=== PATIENT | male | born 1985 | race Caucasian/White ===

== ENCOUNTER 2017-09-06 12:03 | Emergency (ER) | payer SELFPAY ==
[~2017-09-06] VITALS: Ht 175.3 cm; Wt 56.8 kg
[~2017-09-06 12:03] MED LIST: BENZ2 PO; DEXT5LOZ3 BUCCAL; DIPH50 PO; HALO10 PO; PROP1TAB66 PO; WELL150T PO
[2017-09-06 12:06] VITALS: BP 110/72; PULSE 81; RESP 16; TEMP 99; O2SAT 98
[2017-09-06] MEDS ORDERED: WELL200T (12:47)
[2017-09-06] MEDS ORDERED: MIRTA15 PO (12:47)
[2017-09-06] MEDS ORDERED: PROP10TA6 PO (12:47)
[2017-09-06] MEDS ORDERED: OXCA300T PO (12:47)
[2017-09-06] MEDS ORDERED: HALO10TA PO (12:47)
[2017-09-06] MEDS ORDERED: BENZ0.5T PO (12:47)
--- NOTE | 2017-09-06 13:27 | RADRPT ---
EXAM DATE/TIME: 09/06/2017 13:16 [place] COMPARISON: No previous studies available for comparison. INDICATIONS : Cough MEDICAL HISTORY : None. SURGICAL HISTORY : None. ENCOUNTER: Initial ACUITY: 4 - 6 days PAIN SCORE: 0/10 LOCATION: Bilateral chest FINDINGS: 2 PA erect views of the chest demonstrates the lungs to be symmetrically aerated without evidence of mass, infiltrate or effusion. The cardiomediastinal contours are unremarkable. Osseous structures a re intact. CONCLUSION: No acute disease. There is no evidence of pneumonia. Patric Gómez MD on September 06, 2017 at 13:24 Board Certified Radiologist. This report was verified electronically.
[2017-09-06 13:42] LABS: BASOPHIL # 0.1 TH/MM3 (0-0.2); EOSINOPHIL # 0.1 TH/MM3 (0-0.4); HEMOGLOBIN 14.5 GM/DL (13.0-17.0); LYMPH % 21.5 % (9.0-44.0); LYMPHOCYTE # 1.4 TH/MM3 (1.0-4.8); MEAN CELL VOLUME 92.9 FL (80.0-100.0); MEAN CORPUSCULAR HEMOGLOBIN 32.1 PG (27.0-34.0); MEAN CORPUSCULAR HGB CONC 34.5 % (32.0-36.0); MEAN PLATELET VOLUME 5.9 FL (7.0-11.0); MONO % 13.5 % (0.0-8.0); MONOCYTE # 0.9 TH/MM3 (0-0.9); PLATELET COUNT 281 TH/MM3 (150-450); RED BLOOD COUNT 4.52 MIL/MM3 (4.50-5.90); RED CELL DISTRIBUTION WIDTH 12.1 % (11.6-17.2); WHITE BLOOD COUNT 6.4 TH/MM3 (4.0-11.0)
[2017-09-06 13:46] LABS: CHLORIDE 93 MEQ/L (98-107); SODIUM (NA) 125 MEQ/L (136-145)
[2017-09-06 13:49] LABS: ALBUMIN 3.9 GM/DL (3.4-5.0); BICARBONATE 25.2 MEQ/L (21.0-32.0); CALCIUM 8.4 MG/DL (8.5-10.1)
[2017-09-06 13:50] LABS: BLOOD UREA NITROGEN 4 MG/DL (7-18); GLUCOSE,RANDOM 87 MG/DL (74-106)
[2017-09-06 13:53] LABS: AST (GOT) 15 U/L (15-37); CREATININE 0.86 MG/DL (0.60-1.30); GLOMERULAR FILTRATION RATE 102 ML/MIN (>89)
[2017-09-06 13:54] LABS: TOTAL BILIRUBIN ADULT 0.5 MG/DL (0.2-1.0); TOTAL PROTEIN 6.9 GM/DL (6.4-8.2)
[2017-09-06 13:56] LABS: ALKALINE PHOSPHATASE 79 U/L (45-117)
[2017-09-06 13:58] LABS: ALT (GPT) 34 U/L (12-78)
[2017-09-06] MEDS ORDERED: SODIUM CHLOR 0.9% 1000 ML INJ 1,000 ML IV ONE (14:00)
--- NOTE | 2017-09-06 14:28 | PD ---
HPI Chief Complaint: Cold / Flu Symptoms Time Seen by Provider: 12:42 Travel History International Travel<30 days: No Contact w/Intl Traveler<30days: No Traveled to known affect area: No History of Present Illness HPI 31-year-old male that presents to the ED for evaluation of cold like symptoms. Patient has had cold like symptoms for about 4 or 5 days. Patient states that he has not been drinking a lot of water feels complains of sore throat. Congestion and cough. No sick contacts. Patient states having loss of appetite. He states that he has cough. He has not seen anybody for this. No urinary or bowel movement issues. No numbness, tingling, weakness. Per patient he has congestion in his chest. He got the flu shot this year. No allergies to medication. No back pain or neck pain. Per patient the body aches all over. Hasn't taken anything for this. No other medical issues. Pain per patient is 7 out of 10. PFSH Past Medical History Hx Anticoagulant Therapy: No Anxiety: Yes Depression: Yes Cancer: No (not reported) Cardiovascular Problems: Yes Chemotherapy: No Cerebrovascular Accident: No Diabetes: No Diminished Hearing: No Endocrine: No Genitourinary: No Headaches: No (not reported) Hypertension: Yes Immune Disorder: No Musculoskeletal: No Neurologic: No Psychiatric: Yes Respiratory: No Immunizations Current: Yes Radiation Therapy: No Schizophrenia: Yes Seizures: No Thyroid Disease: No Tetanus Vaccination: Unknown Influenza Vaccination: Yes Past Surgical History Surgical History: No Previous Surgery Hysterectomy: No Social History Alcohol Use: No (Hasn't had a drink in 5-6 mos) Tobacco Use: Yes Substance Use: No Allergies-Medications (Allergen,Severity, Reaction): Coded Allergies: No Known Allergies (Unverified Adverse Reaction, Unknown, 09/06/17) Per MAR faxed from [facility] [phone] per Nory. Reported Meds & Prescriptions Reported Meds & Active Scripts Active Reported Haloperidol 10 Mg Tab 10 Mg PO BID Oxcarbazepine 300 Mg Tab 300 Mg PO BID Wellbutrin SR 12 HR (Bupropion HCl) 200 Mg Tab 200 Mg DAILY Benztropine (Benztropine Mesylate) 0.5 Mg Tab 2 Mg PO BID Mirtazapine 15 Mg Tab 15 Mg PO HS Propranolol (Propranolol HCl) 10 Mg Tab 10 Mg PO Q12HR Review of Systems Except as stated in HPI: all other systems reviewed are Neg Physical Exam Narrative GENERAL: Well-nourished, well-developed patient in no apparent distress. SKIN: Warm and dry. HEAD: Atraumatic. Normocephalic. EYES: Pupils equal and round reactive to light and accommodation. No scleral icterus. No injection or drainage. ENT: No nasal bleeding or discharge. Mucous membranes pink and moist. TMs are clear with no sign of infection or perforation. No mastoid tenderness. Ear canals are intact bilaterally. No lymphadenopathy. Nostril mucosa is red and moist with clear mucus noted. No sinus tenderness to palpation noted. Tonsils are not enlarged or swollen. No ulvua Deviation. Tongue is midline. NECK: Trachea midline. No JVD. No meningeal signs noted CARDIOVASCULAR: Regular rate and rhythm. RESPIRATORY: No accessory muscle use. Clear to auscultation. Breath sounds equal bilaterally. GASTROINTESTINAL: Abdomen soft, non-tender, nondistended. Hepatic and splenic margins not palpable. MUSCULOSKELETAL: Extremities without clubbing, cyanosis, or edema. No obvious deformities. Full range of motion of the upper and lower extremity is bilaterally. 2+ pulses bilaterally. NEUROLOGICAL: Awake and alert. No obvious cranial nerve deficits. Motor grossly within normal limits. Five out of 5 muscle strength in the arms and legs. Normal speech. PSYCHIATRIC: Appropriate mood and affect; insight and judgment normal. Data Data Last Documented VS Vital Signs Date Time Temp Pulse Resp B/P (MAP) Pulse Ox O2 Delivery O2 Flow Rate FiO2 09/06/17 12:06 99.0 81 16 110/72 (85) 98 Orders Orders Chest, Single Ap (09/06/17 ) Influenzae A/B Antigen (09/06/17 13:08) Complete Blood Count With Diff (09/06/17 13:15) Comprehensive Metabolic Panel (09/06/17 13:15) Thyroid Stimulating Hormone (09/06/17 13:15) Sodium Chlor 0.9% 1000 Ml Inj (Ns 1000 M (09/06/17 14:00) Ed Discharge Order (09/06/17 14:24) Labs Laboratory Tests Test 09/06/17 13:25 White Blood Count 6.4 TH/MM3 Red Blood Count 4.52 MIL/MM3 Hemoglobin 14.5 GM/DL Hematocrit 42.0 % Mean Corpuscular Volume 92.9 FL Mean Corpuscular Hemoglobin 32.1 PG Mean Corpuscular Hemoglobin Concent 34.5 % Red Cell Distribution Width 12.1 % Platelet Count 281 TH/MM3 Mean Platelet Volume 5.9 FL Neutrophils (%) (Auto) 63.0 % Lymphocytes (%) (Auto) 21.5 % Monocytes (%) (Auto) 13.5 % Eosinophils (%) (Auto) 1.0 % Basophils (%) (Auto) 1.0 % Neutrophils # (Auto) 4.0 TH/MM3 Lymphocytes # (Auto) 1.4 TH/MM3 Monocytes # (Auto) 0.9 TH/MM3 Eosinophils # (Auto) 0.1 TH/MM3 Basophils # (Auto) 0.1 TH/MM3 CBC Comment DIFF FINAL Differential Comment Blood Urea Nitrogen 4 MG/DL Creatinine 0.86 MG/DL Random Glucose 87 MG/DL Total Protein 6.9 GM/DL Albumin 3.9 GM/DL Calcium Level 8.4 MG/DL Alkaline Phosphatase 79 U/L Aspartate Amino Transf (AST/SGOT) 15 U/L Alanine Aminotransferase (ALT/SGPT) 34 U/L Total Bilirubin 0.5 MG/DL Sodium Level 125 MEQ/L Potassium Level 3.9 MEQ/L Chloride Level 93 MEQ/L Carbon Dioxide Level 25.2 MEQ/L Anion Gap 7 MEQ/L Estimat Glomerular Filtration Rate 102 ML/MIN Thyroid Stimulating Hormone 3rd Gen 0.766 uIU/ML MDM Medical Decision Making Medical Screen Exam Complete: Yes Emergency Medical Condition: Yes Medical Record Reviewed: Yes Interpretation(s) CBC & BMP Diagram 09/06/17 13:25 Total Protein 6.9, Albumin 3.9, Calcium Level 8.4 L, Alkaline Phosphatase 79, Aspartate Amino Transf (AST/SGOT) 15, Alanine Aminotransferase (ALT/SGPT) 34, Total Bilirubin 0.5 CXR negative TSH WNL Differential Diagnosis Pharyngitis versus dehydration versus flu versus pneumonia versus viral illness versus sinusitis versus bronchitis Narrative Course 32-year-old male that presents to the ED for evaluation of cold-like symptoms. Patient was properly examined and was found to have signs and symptoms consistent appears to be likely viral illness. Labs and imaging ordered. Labs and imaging show no sign of acute disease other than hyponatremia likely from dehydration. Patient tells me that he's not been drinking a lot. Likely from dehydration. This was discussed in my attending Dr. Chavez who evaluated the patient himself and recommends IV bolus of fluid and discharge. Patient will be started on prescriptions for azithromycin, Tessalon Perles, Magic mouthwash to help with the sore throat. Told to follow closely with PCP. See ED worsening symptoms. Diagnosis Primary Impression: Pharyngitis, acute Qualified Codes: J02.9 - Acute pharyngitis, unspecified Patient Instructions: General Instructions Additional Instructions: Motrin and Tylenol for pain and fever. You can use [id number] antihistamine as well as well as Mucinex as needed for runny nose and congestion. Cough drops for cough as needed. Drink plenty of fluids. Follow-up with PCP. See ED for worsening symptoms. Med/Other Pt SpecificInfo: Prescription(s) given Disposition: 01 DISCHARGE HOME Condition: Stable Rafael Silva Sep 06, 2017 14:28
[2017-09-06] MEDS ORDERED: BENZ100 PO (14:29)
[2017-09-06] MEDS ORDERED: MAGICADU2 SWISH-SWAL (14:29)
[2017-09-06] MEDS ORDERED: AZIT250T3 PO (14:29)
== END 2017-09-06 15:24 | disposition home or self-care (01) ==
LOC: PHEFT 12:03
DX: J02.9 Acute pharyngitis, unspecified (principal); R05 Cough; R52 Pain, unspecified; F32.9 Major depressive disorder, single episode, unspecified; I10 Essential (primary) hypertension; F20.9 Schizophrenia, unspecified; F41.9 Anxiety disorder, unspecified; Z72.0 Tobacco use
CPT/HCPCS: 71045; 80053; 84443; 85025; 87804; 99284; J7030

== ENCOUNTER 2017-11-24 13:47 | Emergency (ER) | payer OTHER ==
[~2017-11-24] VITALS: Ht 172.7 cm; Wt 65.0 kg
[~2017-11-24 13:47] MED LIST changes: +AZIT250T3 PO; +BENZ0.5T PO; +BENZ100 PO; -BENZ2 PO; -DEXT5LOZ3 BUCCAL; -DIPH50 PO; -HALO10 PO; +HALO10TA PO; +MAGICADU2 SWISH-SWAL; +MIRTA15 PO; +OXCA300T PO; +PROP10TA6 PO; -PROP1TAB66 PO; -WELL150T PO; +WELL200T
[2017-11-24 14:01] VITALS: BP 127/72; PULSE 91; RESP 16; TEMP 97; O2SAT 97
[2017-11-24 14:18] VITALS: BP 118/74; PULSE 86; RESP 24; TEMP 99.2; O2SAT 97
[2017-11-24 15:20] LABS: AUTOMATED NEUTROPHIL # 5.4 TH/MM3 (1.8-7.7); BASOPHIL # 0.1 TH/MM3 (0-0.2); BASOPHIL % 0.7 % (0.0-2.0); EOSINOPHIL # 0.2 TH/MM3 (0-0.4); EOSINOPHIL % 2.9 % (0.0-4.0); HEMATOCRIT 44.7 % (39.0-51.0); HEMOGLOBIN 15.6 GM/DL (13.0-17.0); LYMPH % 12.4 % (9.0-44.0); LYMPHOCYTE # 0.9 TH/MM3 (1.0-4.8); MEAN CELL VOLUME 97.9 FL (80.0-100.0); MEAN CORPUSCULAR HEMOGLOBIN 34.2 PG (27.0-34.0); MEAN CORPUSCULAR HGB CONC 34.9 % (32.0-36.0); MEAN PLATELET VOLUME 6.5 FL (7.0-11.0); MONO % 12.1 % (0.0-8.0); MONOCYTE # 0.9 TH/MM3 (0-0.9); NEUT % 71.9 % (16.0-70.0); PLATELET COUNT 250 TH/MM3 (150-450); RED BLOOD COUNT 4.57 MIL/MM3 (4.50-5.90); WHITE BLOOD COUNT 7.5 TH/MM3 (4.0-11.0)
[2017-11-24 15:25] LABS: BILIRUBIN, URINE NEG (NEG); BLOOD, URINE NEG (NEG); GLUCOSE,URINE NEG (NEG); KETONE, URINE NEG (NEG); NITRITE,URINE NEG (NEG); URINE COLOR COLORLESS (YELLW/STRAW); URINE LEUKOCYTE ESTERASE NEG (NEG)
--- NOTE | 2017-11-24 15:33 | PD ---
HPI Chief Complaint: Suicide Ideation/Attempt Time Seen by Provider: 14:28 Travel History International Travel<30 days: No Contact w/Intl Traveler<30days: No Traveled to known affect area: No History of Present Illness HPI Patient is a 32-year-old male [facility]. Patient states he tried to commit suicide last night by hanging himself. He reports that he did not actually hang himself but he had the rope tied around his neck and then changed his mind. He reports previous suicide attempt by the same method. He denies any hallucinations or homicidal ideations. Patient states his been more depressed, he does not elaborate on this. Patient is answering no to every question, he is not forthcoming with information. He denies any physical complaints. He states he moved to [facility] from [place] a few years ago and has no family contacts and no friends in the area. He denies any illicit drug use, alcohol use or tobacco use. PFSH Past Medical History Hx Anticoagulant Therapy: No Anxiety: Yes Depression: Yes Hypertension: Yes Immunizations Current: Yes Schizophrenia: Yes Past Surgical History Hysterectomy: No Social History Alcohol Use: No (Hasn't had a drink in 5-6 mos) Tobacco Use: Yes Substance Use: No Allergies-Medications (Allergen,Severity, Reaction): Coded Allergies: No Known Allergies (Unverified Adverse Reaction, Unknown, 09/06/17) Per MAR faxed from [facility] [phone] per Nory. Reported Meds & Prescriptions Reported Meds & Active Scripts Active Tessalon Perles (Benzonatate) 100 Mg Cap 200 Mg PO TID PRN Magic Mouthwash Adult Liq (Multi-Ingredient Mouthwash/Gargle) 120 Ml Susp 5 Ml SWISH-SWAL ACHS Each 5mL contains: Nystatin 200,000units, Diphenhydramine 4.25mg, Viscous Lidocaine 10mg, Zapata syrup 0.8 mL Azithromycin 250 Mg Tab 250 Mg PO DIRECTED Take 2 tabs (500 mg) on day 1 then 1 tab daily x 4 days. Reported Haloperidol 10 Mg Tab 10 Mg PO BID Oxcarbazepine 300 Mg Tab 300 Mg PO BID Wellbutrin SR 12 HR (Bupropion HCl) 200 Mg Tab 200 Mg DAILY Benztropine (Benztropine Mesylate) 0.5 Mg Tab 2 Mg PO BID Mirtazapine 15 Mg Tab 15 Mg PO HS Propranolol (Propranolol HCl) 10 Mg Tab 10 Mg PO Q12HR Review of Systems Except as stated in HPI: all other systems reviewed are Neg Psychiatric: Positive: Depression, Suicidal Ideations Physical Exam Narrative GENERAL: Well-developed, well-nourished, alert male. Presenting in no acute distress. SKIN: Warm and dry. HEAD: Atraumatic. Normocephalic. EYES: Pupils equal and round. No scleral icterus. No injection or drainage. ENT: No nasal bleeding or discharge. Mucous membranes pink and moist. NECK: Trachea midline. No JVD. CARDIOVASCULAR: Regular rate and rhythm. RESPIRATORY: No accessory muscle use. Clear to auscultation. Breath sounds equal bilaterally. GASTROINTESTINAL: Abdomen soft, non-tender, nondistended. Hepatic and splenic margins not palpable. MUSCULOSKELETAL: Extremities without clubbing, cyanosis, or edema. No obvious deformities. NEUROLOGICAL: Awake and alert. No obvious cranial nerve deficits. Motor grossly within normal limits. Five out of 5 muscle strength in the arms and legs. Normal speech. PSYCHIATRIC: Appropriate mood and flat affect; insight and judgment normal. Data Data Last Documented VS Vital Signs Date Time Temp Pulse Resp B/P (MAP) Pulse Ox O2 Delivery O2 Flow Rate FiO2 11/24/17 14:18 99.2 86 24 118/74 (89) 97 Room Air Orders Orders Complete Blood Count With Diff (11/24/17 14:27) Comprehensive Metabolic Panel (11/24/17 14:27) Thyroid Stimulating Hormone (11/24/17 14:27) Urinalysis - C+S If Indicated (11/24/17 14:27) Psych Screen (11/24/17 14:27) Drug Screen, Random Urine (11/24/17 14:27) Alcohol (Ethanol) (11/24/17 14:27) Salicylates (Aspirin) (11/24/17 14:27) Tylenol (Acetaminophen) (11/24/17 14:27) Diet Regular Basic (18 Lunch) Diet Regular Basic (11/24/17 Dinner) Labs Laboratory Tests Test 11/24/17 14:27 11/24/17 15:03 Urine Color COLORLESS Urine Turbidity CLEAR Urine pH 7.0 Urine Specific [place] 1.002 Urine Protein NEG mg/dL Urine Glucose (UA) NEG mg/dL Urine Ketones NEG mg/dL Urine Occult Blood NEG Urine Nitrite NEG Urine Bilirubin NEG Urine Urobilinogen LESS THAN 2.0 MG/DL Urine Leukocyte Esterase NEG Urine WBC 1 /hpf Microscopic Urinalysis Comment CULT NOT INDICATED Urine Opiates Screen NEG Urine Barbiturates Screen NEG Urine Amphetamines Screen NEG Urine Benzodiazepines Screen NEG Urine Cocaine Screen NEG Urine Cannabinoids Screen NEG White Blood Count 7.5 TH/MM3 Red Blood Count 4.57 MIL/MM3 Hemoglobin 15.6 GM/DL Hematocrit 44.7 % Mean Corpuscular Volume 97.9 FL Mean Corpuscular Hemoglobin 34.2 PG Mean Corpuscular Hemoglobin Concent 34.9 % Red Cell Distribution Width 15.0 % Platelet Count 250 TH/MM3 Mean Platelet Volume 6.5 FL Neutrophils (%) (Auto) 71.9 % Lymphocytes (%) (Auto) 12.4 % Monocytes (%) (Auto) 12.1 % Eosinophils (%) (Auto) 2.9 % Basophils (%) (Auto) 0.7 % Neutrophils # (Auto) 5.4 TH/MM3 Lymphocytes # (Auto) 0.9 TH/MM3 Monocytes # (Auto) 0.9 TH/MM3 Eosinophils # (Auto) 0.2 TH/MM3 Basophils # (Auto) 0.1 TH/MM3 CBC Comment DIFF FINAL Differential Comment Blood Urea Nitrogen 5 MG/DL Creatinine 0.88 MG/DL Random Glucose 78 MG/DL Total Protein 7.1 GM/DL Albumin 4.1 GM/DL Calcium Level 8.7 MG/DL Alkaline Phosphatase 84 U/L Aspartate Amino Transf (AST/SGOT) 40 U/L Alanine Aminotransferase (ALT/SGPT) 74 U/L Total Bilirubin 0.3 MG/DL Sodium Level 141 MEQ/L Potassium Level 4.2 MEQ/L Chloride Level 105 MEQ/L Carbon Dioxide Level 26.7 MEQ/L Anion Gap 9 MEQ/L Estimat Glomerular Filtration Rate 100 ML/MIN Thyroid Stimulating Hormone 3rd Gen 2.100 uIU/ML Salicylates Level 5.5 MG/DL Acetaminophen Level LESS THAN 2.0 MCG/ML Ethyl Alcohol Level LESS THAN 3 MG/DL MDM Medical Decision Making Medical Screen Exam Complete: Yes Emergency Medical Condition: Yes Interpretation(s) Laboratory Tests Test 11/24/17 14:27 11/24/17 15:03 Urine Color COLORLESS Urine Turbidity CLEAR Urine pH 7.0 Urine Specific [place] 1.002 Urine Protein NEG mg/dL Urine Glucose (UA) NEG mg/dL Urine Ketones NEG mg/dL Urine Occult Blood NEG Urine Nitrite NEG Urine Bilirubin NEG Urine Urobilinogen LESS THAN 2.0 MG/DL Urine Leukocyte Esterase NEG Urine WBC 1 /hpf Microscopic Urinalysis Comment CULT NOT INDICATED Urine Opiates Screen NEG Urine Barbiturates Screen NEG Urine Amphetamines Screen NEG Urine Benzodiazepines Screen NEG Urine Cocaine Screen NEG Urine Cannabinoids Screen NEG White Blood Count 7.5 TH/MM3 Red Blood Count 4.57 MIL/MM3 Hemoglobin 15.6 GM/DL Hematocrit 44.7 % Mean Corpuscular Volume 97.9 FL Mean Corpuscular Hemoglobin 34.2 PG Mean Corpuscular Hemoglobin Concent 34.9 % Red Cell Distribution Width 15.0 % Platelet Count 250 TH/MM3 Mean Platelet Volume 6.5 FL Neutrophils (%) (Auto) 71.9 % Lymphocytes (%) (Auto) 12.4 % Monocytes (%) (Auto) 12.1 % Eosinophils (%) (Auto) 2.9 % Basophils (%) (Auto) 0.7 % Neutrophils # (Auto) 5.4 TH/MM3 Lymphocytes # (Auto) 0.9 TH/MM3 Monocytes # (Auto) 0.9 TH/MM3 Eosinophils # (Auto) 0.2 TH/MM3 Basophils # (Auto) 0.1 TH/MM3 CBC Comment DIFF FINAL Differential Comment Blood Urea Nitrogen 5 MG/DL Creatinine 0.88 MG/DL Random Glucose 78 MG/DL Total Protein 7.1 GM/DL Albumin 4.1 GM/DL Calcium Level 8.7 MG/DL Alkaline Phosphatase 84 U/L Aspartate Amino Transf (AST/SGOT) 40 U/L Alanine Aminotransferase (ALT/SGPT) 74 U/L Total Bilirubin 0.3 MG/DL Sodium Level 141 MEQ/L Potassium Level 4.2 MEQ/L Chloride Level 105 MEQ/L Carbon Dioxide Level 26.7 MEQ/L Anion Gap 9 MEQ/L Estimat Glomerular Filtration Rate 100 ML/MIN Thyroid Stimulating Hormone 3rd Gen 2.100 uIU/ML Salicylates Level 5.5 MG/DL Acetaminophen Level LESS THAN 2.0 MCG/ML Ethyl Alcohol Level LESS THAN 3 MG/DL Vital Signs Date Time Temp Pulse Resp B/P (MAP) Pulse Ox O2 Delivery O2 Flow Rate FiO2 11/24/17 14:18 99.2 86 24 118/74 (89) 97 Room Air 11/24/17 14:01 97.0 91 16 127/72 (90) 97 Differential Diagnosis Mood disorder versus substance abuse versus suicidal ideations versus metabolic abnormality versus other Narrative Course Patient is well-appearing 32-year-old male. He presented voluntarily for psychiatric evaluation. Patient's vital signs are stable. Mental health screening discussed with the patient. Psychiatric screen ordered. Labs reviewed , no acute findings identified. Patient is medically cleared for psychiatric evaluation. Diagnosis Primary Impression: Medical clearance for psychiatric admission Condition: Stable Janet Day Nov 24, 2017 15:33
[2017-11-24 15:37] LABS: ALBUMIN 4.1 GM/DL (3.4-5.0); ALT (GPT) 74 U/L (12-78); AST (GOT) 40 U/L (15-37); BICARBONATE 26.7 MEQ/L (21.0-32.0); BLOOD UREA NITROGEN 5 MG/DL (7-18); CALCIUM 8.7 MG/DL (8.5-10.1); CHLORIDE 105 MEQ/L (98-107); CREATININE 0.88 MG/DL (0.60-1.30); GLOMERULAR FILTRATION RATE 100 ML/MIN (>89); GLUCOSE,RANDOM 78 MG/DL (74-106); SODIUM (NA) 141 MEQ/L (136-145)
[2017-11-24 15:47] LABS: ALKALINE PHOSPHATASE 84 U/L (45-117); TOTAL BILIRUBIN ADULT 0.3 MG/DL (0.2-1.0); TOTAL PROTEIN 7.1 GM/DL (6.4-8.2)
[2017-11-24 15:55] LABS: ACETAMINOPHEN LESS THAN 2.0 MCG/ML (10.0-30.0)
[2017-11-24 18:12] VITALS: BP 118/70; PULSE 92; RESP 18; O2SAT 96
[2017-11-24 22:31] VITALS: BP 108/57; PULSE 88; RESP 18; TEMP 98.7; O2SAT 98
[2017-11-25 05:29] VITALS: BP 132/71; PULSE 85; RESP 16; TEMP 99.8; O2SAT 96
--- NOTE | 2017-11-25 13:17 | PD ---
History of Present Illness Chief Complaint: Suicide Ideation/Attempt Time Seen by Provider: 13:00 Travel History International Travel<30 Days: No Contact w/Intl Traveler<30days: No Known affected area: No Legal Status Legal Status: Voluntary History of Present Illness: History of Present Illness HPI Patient is a 32-year-old, single male with history of schizoaffective disorder presenting to emergency department voluntarily for psychiatric evaluation. Patient reported to ED provider states" he tried to commit suicide last night by hanging himself. He reports that he did not actually hang himself but he had the rope tied around his neck and then changed his mind. He reports previous suicide attempt by the same method. He denies any hallucinations or homicidal ideations. Patient states his been more depressed, he does not elaborate on this. Patient is answering no to every question, he is not forthcoming with information. EMR is reviewed. His last psychiatric admission at this facility was in 2016. At that admission he also reported that he was feeling suicidal with thoughts of wanting to hang himself. Current toxicology is negative. BAL is undetectable. Patient was monitor and secure environment and presented no behavioral concerns and no suicidality. Patient is seen in J pod. Marily Shore RN present during evaluation he is awake, alert and oriented. He is calm and cooperative. Speech is clear and logical. Normal rate and tone. No evidence of any psychosis, no carlos. Patient states " I am ready to go. They said that I said I was going to hang myself but I did not say that. It is not true. He then later states; "I lied just because I wanted to get some rest. I left where I was living and went to have a couple beers. So I was homeless for a couple of days. I am ready to go now." Patient denies any suicidal or homicidal ideation, intent or plan. I called the phone number on his EMR. Patient was stating that he did not know where he was living and did not know the phone number. Female who answered the phone indicated that the number I had just called was a ministry called [employer] [employer]. She also stated that the patient had left their facilities and was no longer welcome to stay there and that he frequently walks out and goes missing for several days. I have asked Tea, mechanical project manager to contact [facility] case maker, Eugenia Pham to assist with disposition. . PFSH Past Medical History Hx Anticoagulant Therapy: No Anxiety: Yes Depression: Yes Cardiovascular Problems: Yes Patient Takes Glucophage: No Diminished Hearing: No Hypertension: Yes Psychiatric: Yes Immunizations Current: Yes Schizophrenia: Yes Tetanus Vaccination: Unknown ?: Not Past Surgical History Hysterectomy: No Psychiatric History Psychiatric History Hx Psychiatric Treatment: Hx Schizoaffective Disorder. Hx multiple admits in 2014 and 2016. History of Inpatient Treatment: Yes Guns or firearms in home: No Social History Single male. Lives at a [facility]. Unemployed Hx Alcohol Use: No (Hasn't had a drink in 5-6 mos) Hx Tobacco Use: Yes Hx Substance Use: No (Pt denies. ) Substance Use Type: Alcohol Other Substances Used: ETOH Hx of Substance Use Treatment: Yes Family Psychiatric History None reported Allergies-Medications (Allergen,Severity, Reaction): Coded Allergies: No Known Allergies (Unverified Adverse Reaction, Unknown, 09/06/17) Per MAR faxed from [employer] [phone] per Nory. Reported Meds & Prescriptions Reported Meds & Active Scripts Active Tessalon Perles (Benzonatate) 100 Mg Cap 200 Mg PO TID PRN Magic Mouthwash Adult Liq (Multi-Ingredient Mouthwash/Gargle) 120 Ml Susp 5 Ml SWISH-SWAL ACHS Each 5mL contains: Nystatin 200,000units, Diphenhydramine 4.25mg, Viscous Lidocaine 10mg, Zapata syrup 0.8 mL Azithromycin 250 Mg Tab 250 Mg PO DIRECTED Take 2 tabs (500 mg) on day 1 then 1 tab daily x 4 days. Reported Haloperidol 10 Mg Tab 10 Mg PO BID Oxcarbazepine 300 Mg Tab 300 Mg PO BID Wellbutrin SR 12 HR (Bupropion HCl) 200 Mg Tab 200 Mg DAILY Benztropine (Benztropine Mesylate) 0.5 Mg Tab 2 Mg PO BID Mirtazapine 15 Mg Tab 15 Mg PO HS Propranolol (Propranolol HCl) 10 Mg Tab 10 Mg PO Q12HR Review of Systems Psychiatric: DENIES: Anxiety, Confusion, Mood changes, Depression, Hallucinations, Agitation, Suicidal Ideation, Homicidal Ideation, Delusions Except as stated in HPI: all other systems reviewed are Neg Mental Status Examination Appearance: Appropriate Consciousness: Alert Orientation: x4 Motor Activity: Normal gait Speech: Unremarkable Language: Adequate Fund of Knowledge: Adequate Attention and Concentration: Adequate Memory: Unremarkable Mood: Appropriate Affect: Appropriate Thought Process & Associations: Intact, Logical, Goal directed Thought Content: Appropriate Hallucination Type: None Delusion Type: None Suicidal Ideation: No Suicidal Plan: No Suicidal Intention: No Homicidal Ideation: No Homicidal Plan: No Homicidal Intention: No Insight: Poor Judgment: Impulsive MDM Medical Decision Making Medical Record Reviewed: Yes Assessment/Plan Patient is a 32-year-old, single male with history of schizoaffective disorder presenting to emergency department voluntarily for psychiatric evaluation. Patient reported to ED provider that " he tried to commit suicide last night by hanging himself. He reports that he did not actually hang himself but he had the rope tied around his neck and then changed his mind. He reports previous suicide attempt by the same method. He denies any hallucinations or homicidal ideations. Patient did not make any attempt to harm himself. Patient was not forthcoming with a lot of information to other providers. This morning the patient presents no evidence of any unstable mental illness. Does not appear to be psychotic and not manic. He denies any suicidal or homicidal ideation, intent or plan. The patient is requesting to be discharged. He further states that he lied on initial arrival to the ED because he was tired and needed a place to stay. He claims that he will take a bus back to the community that he was living at. The patient will be referred back to [facility] and his case maker for assistance. He is psychiatrically clear for discharge from the ED. Orders Orders Complete Blood Count With Diff (11/24/17 14:27) Comprehensive Metabolic Panel (11/24/17 14:27) Thyroid Stimulating Hormone (11/24/17 14:27) Urinalysis - C+S If Indicated (11/24/17 14:27) Psych Screen (11/24/17 14:27) Drug Screen, Random Urine (11/24/17 14:27) Alcohol (Ethanol) (11/24/17 14:27) Salicylates (Aspirin) (11/24/17 14:27) Tylenol (Acetaminophen) (11/24/17 14:27) Diet Regular Basic (11/24/17 Lunch) Diet Regular Basic (11/24/17 Dinner) Diet Regular Basic (11/25/17 Breakfast) Diet Regular Basic (11/25/17 Lunch) Results Vital Signs Date Time Temp Pulse Resp B/P (MAP) Pulse Ox O2 Delivery O2 Flow Rate FiO2 11/25/17 05:29 99.8 85 16 132/71 (91) 96 11/24/17 22:31 98.7 88 18 108/57 (74) 98 11/24/17 18:12 92 18 118/70 (86) 96 Room Air 11/24/17 14:18 99.2 86 24 118/74 (89) 97 Room Air 11/24/17 14:01 97.0 91 16 127/72 (90) 97 Laboratory Tests Test 11/24/17 14:27 11/24/17 15:03 Urine Color COLORLESS Urine Turbidity CLEAR Urine pH 7.0 Urine Specific [place] 1.002 Urine Protein NEG Urine Glucose (UA) NEG Urine Ketones NEG Urine Occult Blood NEG Urine Nitrite NEG Urine Bilirubin NEG Urine Urobilinogen LESS THAN 2.0 Urine Leukocyte Esterase NEG Urine WBC 1 Microscopic Urinalysis Comment CULT NOT INDICATED Urine Opiates Screen NEG Urine Barbiturates Screen NEG Urine Amphetamines Screen NEG Urine Benzodiazepines Screen NEG Urine Cocaine Screen NEG Urine Cannabinoids Screen NEG White Blood Count 7.5 Red Blood Count 4.57 Hemoglobin 15.6 Hematocrit 44.7 Mean Corpuscular Volume 97.9 Mean Corpuscular Hemoglobin 34.2 Mean Corpuscular Hemoglobin Concent 34.9 Red Cell Distribution Width 15.0 Platelet Count 250 Mean Platelet Volume 6.5 Neutrophils (%) (Auto) 71.9 Lymphocytes (%) (Auto) 12.4 Monocytes (%) (Auto) 12.1 Eosinophils (%) (Auto) 2.9 Basophils (%) (Auto) 0.7 Neutrophils # (Auto) 5.4 Lymphocytes # (Auto) 0.9 Monocytes # (Auto) 0.9 Eosinophils # (Auto) 0.2 Basophils # (Auto) 0.1 CBC Comment DIFF FINAL Differential Comment Blood Urea Nitrogen 5 Creatinine 0.88 Random Glucose 78 Total Protein 7.1 Albumin 4.1 Calcium Level 8.7 Alkaline Phosphatase 84 Aspartate Amino Transf (AST/SGOT) 40 Alanine Aminotransferase (ALT/SGPT) 74 Total Bilirubin 0.3 Sodium Level 141 Potassium Level 4.2 Chloride Level 105 Carbon Dioxide Level 26.7 Anion Gap 9 Estimat Glomerular Filtration Rate 100 Thyroid Stimulating Hormone 3rd Gen 2.100 Salicylates Level 5.5 Acetaminophen Level LESS THAN 2.0 Ethyl Alcohol Level LESS THAN 3 Diagnosis Primary Impression: Medical clearance for psychiatric admission Additional Impressions: Schizoaffective disorder Malingering Psychiatrically Cleared: Yes Med/ Other Pt Specific Info: No Meds Exist/No RX given Disposition: 01 DISCHARGE HOME Condition: Stable Problem Qualifiers Additional Impressions: Schizoaffective disorder Qualified Codes: F25.9 - Schizoaffective disorder, unspecified Jayde Coello [facility] Nov 25, 2017 13:17
[2017-11-25 14:01] VITALS: BP 136/70; PULSE 98; RESP 18; O2SAT 96
== END 2017-11-25 14:05 | disposition home or self-care (01) ==
LOC: NEPJ 13:47
DX: Z02.89 Encounter for other administrative examinations (principal); F25.9 Schizoaffective disorder, unspecified; Z76.5 Malingerer [conscious simulation]; I10 Essential (primary) hypertension; F41.8 Other specified anxiety disorders; Z72.0 Tobacco use; Z79.899 Other long term (current) drug therapy
CPT/HCPCS: 80053; 80307; 81001; 84443; 85025; 99283

== ENCOUNTER 2017-12-07 02:36 | Emergency (ER) | payer OTHER ==
[~2017-12-07] VITALS: Ht 167.6 cm; Wt 60.0 kg
[2017-12-07 02:50] VITALS: BP 123/76; PULSE 80; RESP 12; TEMP 98.1; O2SAT 99
--- NOTE | 2017-12-07 03:03 | PD ---
HPI Chief Complaint: Psychiatric Symptoms Time Seen by Provider: 03:00 Travel History International Travel<30 days: No Contact w/Intl Traveler<30days: No Traveled to known affect area: No History of Present Illness HPI 32-year-old white male presents emergency department under Martin act by PD. Patient according to the Martin act was considered missing. The patient had been kicked out of the [facility] due to alcohol consumption and noncompliance with his medications. The patient here states that he was told to sober up and come back. He denies any drug or substance abuse. He is contents that he had been compliant with his medicine. He denies any suicidal homicidal ideation he denies any medical complaints. PFSH Past Medical History Hx Anticoagulant Therapy: No Anxiety: Yes Depression: Yes Cardiovascular Problems: No Chemotherapy: No Cerebrovascular Accident: No Diabetes: No Diminished Hearing: No Hypertension: Yes Psychiatric: Yes Respiratory: No Immunizations Current: Yes Schizophrenia: Yes ?: Not Past Surgical History Surgical History: No Previous Surgery Hysterectomy: No Social History Alcohol Use: Yes Tobacco Use: Yes Substance Use: No (Pt denies. ) Allergies-Medications (Allergen,Severity, Reaction): Coded Allergies: No Known Allergies (Unverified Adverse Reaction, Unknown, 09/06/17) Per MAR faxed from [employer] [phone] per Nory. Reported Meds & Prescriptions Reported Meds & Active Scripts Active Tessalon Perles (Benzonatate) 100 Mg Cap 200 Mg PO TID PRN Magic Mouthwash Adult Liq (Multi-Ingredient Mouthwash/Gargle) 120 Ml Susp 5 Ml SWISH-SWAL ACHS Each 5mL contains: Nystatin 200,000units, Diphenhydramine 4.25mg, Viscous Lidocaine 10mg, Zapata syrup 0.8 mL Azithromycin 250 Mg Tab 250 Mg PO DIRECTED Take 2 tabs (500 mg) on day 1 then 1 tab daily x 4 days. Reported Haloperidol 10 Mg Tab 10 Mg PO BID Oxcarbazepine 300 Mg Tab 300 Mg PO BID Wellbutrin SR 12 HR (Bupropion HCl) 200 Mg Tab 200 Mg DAILY Benztropine (Benztropine Mesylate) 0.5 Mg Tab 2 Mg PO BID Mirtazapine 15 Mg Tab 15 Mg PO HS Propranolol (Propranolol HCl) 10 Mg Tab 10 Mg PO Q12HR Review of Systems General / Constitutional: No: Fever Eyes: No: Visual changes HENT: No: Headaches Cardiovascular: No: Chest Pain or Discomfort Respiratory: No: Shortness of Breath Gastrointestinal: No: Abdominal Pain Genitourinary: No: Dysuria Musculoskeletal: No: Pain Skin: No Rash Neurologic: No: Weakness Psychiatric: No: Anxiety, Depression, Suicidal Ideations, Disorder of Thought, Mood Disorder, Substance Abuse, Homicidal Ideation Endocrine: No: Polydipsia Hematologic/Lymphatic: No: Easy Bruising Physical Exam Narrative GENERAL: Well-nourished, well-developed patient. SKIN: Warm and dry. HEAD: Normocephalic and atraumatic. EYES: No scleral icterus. No injection or drainage. ENT: No nasal drainage noted. Mucous membranes pink. Airway patent. NECK: Supple, trachea midline. Moves head freely without obvious discomfort. CARDIOVASCULAR: Regular rate and rhythm without murmurs, gallops, or rubs. RESPIRATORY: Breath sounds equal bilaterally. No accessory muscle use. GASTROINTESTINAL: Abdomen soft, non-tender, nondistended. EXTREMITIES: No cyanosis or edema. BACK: Nontender without obvious deformity. No CVA tenderness. NEURO: Patient is alert and oriented. no sensorimotor deficits. Nonfocal. Normal speech. PSYCH: No delusions. No auditory or visual hallucinations. Data Data Last Documented VS Vital Signs Date Time Temp Pulse Resp B/P (MAP) Pulse Ox O2 Delivery O2 Flow Rate FiO2 12/07/17 02:50 98.1 80 12 123/76 (92) 99 Orders Orders Comprehensive Metabolic Panel (12/07/17 02:59) Psych Screen (12/07/17 02:59) Drug Screen, Random Urine (12/07/17 02:59) Alcohol (Ethanol) (12/07/17 02:59) MDM Medical Decision Making Medical Screen Exam Complete: Yes Emergency Medical Condition: Yes Medical Record Reviewed: Yes Differential Diagnosis MDM: High Differential diagnoses: Schizophrenia, schizoaffective disorder, bipolar, anxiety, depression, adjustment reaction, mood disorder NOS, ODD, depressive disorder NOS, dementia, dementia with agitation, psychosis NOS, substance induced mood disorder, DMDD, Asperger syndrome, infection,electrolyte abnormality, malingering. Narrative Course Mental health screening discussed with the patient. Psychiatric screen ordered. The patient has been medically cleared. After interviewing this patient I am unclear of the reason for the Martin act. Is not a threat to himself or others. Patient appears to be alert and oriented. Patient has capacity. This is medical clearance for psychiatric admission Diagnosis Primary Impression: Medical clearance for psychiatric admission Condition: Stable Chi Winslow Dec 07, 2017 03:03
[2017-12-07 03:45] LABS: ALBUMIN 4.1 GM/DL (3.4-5.0); ALT (GPT) 26 U/L (12-78); AST (GOT) 16 U/L (15-37); BICARBONATE 25.9 MEQ/L (21.0-32.0); BLOOD UREA NITROGEN 17 MG/DL (7-18); CALCIUM 8.9 MG/DL (8.5-10.1); CHLORIDE 112 MEQ/L (98-107); CREATININE 0.95 MG/DL (0.60-1.30); GLOMERULAR FILTRATION RATE 91 ML/MIN (>89); GLUCOSE,RANDOM 85 MG/DL (74-106); SODIUM (NA) 144 MEQ/L (136-145)
[2017-12-07 03:47] LABS: ALKALINE PHOSPHATASE 78 U/L (45-117); TOTAL BILIRUBIN ADULT 0.2 MG/DL (0.2-1.0)
[2017-12-07 06:22] VITALS: BP 100/60; PULSE 86; RESP 16; O2SAT 99
--- NOTE | 2017-12-07 10:51 | PD ---
History of Present Illness Chief Complaint: Psychiatric Symptoms Time Seen by Provider: 10:40 Travel History International Travel<30 Days: No Contact w/Intl Traveler<30days: No Known affected area: No Legal Status Legal Status: Martin Act Martin Act Signed By: Michael Campa Martin Act Comment: 2017 @ 0218 History of Present Illness: History of Present Illness HPI 32-year-old white, single male with history of schizophrenia who presents emergency department under Martin act by PD.The BA report alleges that the patient was a missing person through [facility]. He reported to the police that he had not slept in 3 days and that he has not eaten. [facility] was [facility] from the [facility] due to walking off and staying out as well as for drinking alcohol. The patient was seen in our ED on November 24 after he had walked off the property. EMR reviewed. The patient has had multiple visits to the ED as well as admissions to our inpatient psychiatric unit. Patient is seen. Tae special education case manager is present. The patient is found resting comfortably. He states " I'm not suicidal. I'm here for a check up" . He does not appear to be internally stimulated. Not manic or hypomanic. The patient's special education case manager is waiting for him at [facility] with his belongings and his medications. They will be looking for housing for him as well. PFSH Past Medical History Hx Anticoagulant Therapy: No Anxiety: Yes Depression: Yes Cardiovascular Problems: No Chemotherapy: No Cerebrovascular Accident: No Diabetes: No Diminished Hearing: No Endocrine: No Hypertension: Yes Immune Disorder: No Implanted Vascular Access Dvce: No Psychiatric: Yes Respiratory: No Immunizations Current: Yes Schizophrenia: Yes ?: Not Past Surgical History Surgical History: No Previous Surgery Hysterectomy: No Psychiatric History Psychiatric History Hx Psychiatric Treatment: Hx Schizoaffective Disorder. Hx multiple admits in 2014 and 2015. History of Inpatient Treatment: Yes Guns or firearms in home: No Social History Single, homeless. On disability. Hx Alcohol Use: Yes Hx Tobacco Use: Yes Hx Substance Use: No (Pt denies. ) Substance Use Type: Alcohol Other Substances Used: ETOH Hx of Substance Use Treatment: Yes Family Psychiatric History Negative Allergies-Medications (Allergen,Severity, Reaction): Coded Allergies: No Known Allergies (Unverified Adverse Reaction, Unknown, 09/06/17) Per MAR faxed from [facility] [phone] per Nory. Reported Meds & Prescriptions Reported Meds & Active Scripts Active Tessalon Perles (Benzonatate) 100 Mg Cap 200 Mg PO TID PRN Magic Mouthwash Adult Liq (Multi-Ingredient Mouthwash/Gargle) 120 Ml Susp 5 Ml SWISH-SWAL ACHS Each 5mL contains: Nystatin 200,000units, Diphenhydramine 4.25mg, Viscous Lidocaine 10mg, Zapata syrup 0.8 mL Reported Haloperidol 10 Mg Tab 10 Mg PO BID Oxcarbazepine 300 Mg Tab 300 Mg PO BID Wellbutrin SR 12 HR (Bupropion HCl) 200 Mg Tab 200 Mg DAILY Benztropine (Benztropine Mesylate) 0.5 Mg Tab 2 Mg PO BID Mirtazapine 15 Mg Tab 15 Mg PO HS Propranolol (Propranolol HCl) 10 Mg Tab 10 Mg PO Q12HR Review of Systems Constitutional: COMPLAINS OF: Weight loss Psychiatric: DENIES: Anxiety, Confusion, Mood changes, Depression, Hallucinations, Agitation, Suicidal Ideation, Homicidal Ideation, Delusions Except as stated in HPI: all other systems reviewed are Neg Mental Status Examination Appearance: Disheveled Consciousness: Alert Orientation: x4 Motor Activity: Normal gait Speech: Unremarkable Language: Adequate Fund of Knowledge: Adequate Attention and Concentration: Adequate Memory: Unremarkable Mood: Appropriate Affect: Appropriate Thought Process & Associations: Intact, Logical, Goal directed Thought Content: Appropriate Hallucination Type: None Delusion Type: None Suicidal Ideation: No Suicidal Plan: No Suicidal Intention: No Homicidal Ideation: No Homicidal Plan: No Homicidal Intention: No Insight: Poor Judgment: Impulsive MDM Medical Decision Making Medical Record Reviewed: Yes Assessment/Plan History of Present Illness HPI 32-year-old white, single male with history of schizophrenia who presents emergency department under Martin act by PD.The BA report alleges that the patient was a missing person through [facility]. He reported to the police that he had not slept in 3 days and that he has not eaten. He was terminated from the penitentiary he was staying due to walking off and staying out as well as for drinking alcohol. The patient was seen in our ED on November 24 after he had walked off the property. The patient does not endorse any suicidal or homicidal ideation, intent or plan. Is currently not psychotic or manic. Was brought to the hospital for medical clearance. BA is lifted. Patient will go to [facility] for disposition. Orders Orders Comprehensive Metabolic Panel (12/07/17 02:59) Psych Screen (12/07/17 02:59) Drug Screen, Random Urine (12/07/17 02:59) Alcohol (Ethanol) (12/07/17 02:59) Diet Regular Basic (12/07/17 Breakfast) Results Vital Signs Date Time Temp Pulse Resp B/P (MAP) Pulse Ox O2 Delivery O2 Flow Rate FiO2 12/07/17 06:22 86 16 100/60 (73) 99 Room Air 12/07/17 02:50 98.1 80 12 123/76 (92) 99 Laboratory Tests Test 12/07/17 02:50 Blood Urea Nitrogen 17 Creatinine 0.95 Random Glucose 85 Total Protein 7.0 Albumin 4.1 Calcium Level 8.9 Alkaline Phosphatase 78 Aspartate Amino Transf (AST/SGOT) 16 Alanine Aminotransferase (ALT/SGPT) 26 Total Bilirubin 0.2 Sodium Level 144 Potassium Level 3.9 Chloride Level 112 Carbon Dioxide Level 25.9 Anion Gap 6 Estimat Glomerular Filtration Rate 91 Ethyl Alcohol Level LESS THAN 3 Diagnosis Primary Impression: Medical clearance for psychiatric admission Additional Impression: Paranoid schizophrenia Psychiatrically Cleared: Yes Med/ Other Pt Specific Info: No Change to Meds Disposition: 01 DISCHARGE HOME Condition: Stable Problem Qualifiers Jayde Coello Dec 07, 2017 10:51
--- NOTE | 2017-12-07 11:01 | PD ---
Physical Exam Date Seen by Provider: Dec 07, 2017 Time Seen by Provider: 11:00 Data Data Last Documented VS Vital Signs Date Time Temp Pulse Resp B/P (MAP) Pulse Ox O2 Delivery O2 Flow Rate FiO2 12/07/17 10:55 12/07/17 06:22 86 16 99 Room Air 12/07/17 02:50 98.1 Orders Orders Comprehensive Metabolic Panel (12/07/17 02:59) Psych Screen (12/07/17 02:59) Drug Screen, Random Urine (12/07/17 02:59) Alcohol (Ethanol) (12/07/17 02:59) Diet Regular Basic (12/07/17 Breakfast) Labs Laboratory Tests Test 12/07/17 02:50 Blood Urea Nitrogen 17 MG/DL Creatinine 0.95 MG/DL Random Glucose 85 MG/DL Total Protein 7.0 GM/DL Albumin 4.1 GM/DL Calcium Level 8.9 MG/DL Alkaline Phosphatase 78 U/L Aspartate Amino Transf (AST/SGOT) 16 U/L Alanine Aminotransferase (ALT/SGPT) 26 U/L Total Bilirubin 0.2 MG/DL Sodium Level 144 MEQ/L Potassium Level 3.9 MEQ/L Chloride Level 112 MEQ/L Carbon Dioxide Level 25.9 MEQ/L Anion Gap 6 MEQ/L Estimat Glomerular Filtration Rate 91 ML/MIN Ethyl Alcohol Level LESS THAN 3 MG/DL MDM Supervised Visit with [facility]: No Narrative Course 32-year-old male presents the ED under Martin act for psychiatric evaluation. He was evaluated by Dustin Amanda PA-C and medically cleared. He was then evaluated by Jayde Coello nutrition internship. Martin act was lifted. Patient's diagnosed with schizoaffective disorder. Plan is for the patient to follow-up with outpatient psychiatric resources. Patient is stable and discharged home. Diagnosis Primary Impression: Medical clearance for psychiatric admission Additional Impressions: Paranoid schizophrenia Schizoaffective disorder Referrals: [facility] Patient Instructions: General Instructions Departure Forms: Tests/Procedures Disposition: DISCHARGE HOME Condition: Stable Yvette Masterson Dec 07, 2017 11:01
== END 2017-12-07 11:45 | disposition home or self-care (01) ==
LOC: NEPJ 02:36
DX: F20.0 Paranoid schizophrenia (principal); F41.8 Other specified anxiety disorders; I10 Essential (primary) hypertension; Z72.0 Tobacco use; Z59.0 Homelessness
CPT/HCPCS: 80053; 80307; 99283